=== PATIENT | male | born 1945 | race Two or more races ===

== ENCOUNTER 2017-08-22 09:11 | Outpatient (CLI) | payer OTHER | END 2017-08-22 09:38 | disposition home or self-care (01) | LOC: LAB 09:11 | DX: D40.9 Neoplasm of uncertain behavior of male genital organ, unspecified (principal); D40.10 Neoplasm of uncertain behavior of unspecified testis; E11.65 Type 2 diabetes mellitus with hyperglycemia; E78.2 Mixed hyperlipidemia; D68.8 Other specified coagulation defects ==

== ENCOUNTER 2017-11-29 11:11 | Outpatient (CLI) | payer OTHER | END 2017-11-29 11:20 | disposition home or self-care (01) | LOC: LAB 11:11 | DX: E78.2 Mixed hyperlipidemia (principal); E11.65 Type 2 diabetes mellitus with hyperglycemia; E11.21 Type 2 diabetes mellitus with diabetic nephropathy; D68.8 Other specified coagulation defects; D68.2 Hereditary deficiency of other clotting factors; N39.0 Urinary tract infection, site not specified; E03.8 Other specified hypothyroidism; J45.998 Other asthma ==

== ENCOUNTER 2017-12-02 12:40 | Emergency (ER) | payer OTHER ==
[~2017-12-02] VITALS: Ht 180.3 cm; Wt 79.4 kg
[2017-12-02] MEDS ORDERED: LISINOPRIL20 MG (12:58)
[2017-12-02] MEDS ORDERED: AMLODIPINE BES2.5 MG (12:58)
[2017-12-02] MEDS ORDERED: FLUTICASONE 50 MCG (13:01)
[2017-12-02] MEDS ORDERED: AZELASTINE137 MCG/0. (13:02)
== END 2017-12-02 14:48 | disposition home or self-care (01) ==
LOC: ER 12:40
DX: I10 Essential (primary) hypertension (principal); F41.8 Other specified anxiety disorders

== ENCOUNTER → 2017-12-08 | Outpatient (CLI) | payer OTHER ==
[~2017-12-08] MED LIST: AMLODIPINE BES2.5 MG; AZELASTINE137 MCG/0.; FLUTICASONE 50 MCG; LISINOPRIL20 MG
== END | disposition home or self-care (01) ==
LOC: NUCLEAR 14:00
DX: M79.4 Hypertrophy of (infrapatellar) fat pad (principal); I70.208 Unspecified atherosclerosis of native arteries of extremities, other extremity

== ENCOUNTER → 2017-12-25 | Outpatient (CLI) | payer OTHER | END | disposition home or self-care (01) | LOC: LAB 14:40 | DX: C61 Malignant neoplasm of prostate (principal) ==